=== PATIENT | male | born 2000 | race Caucasian/White ===

== ENCOUNTER 2021-06-23 12:26 | Inpatient (IN) | payer OTHER, SELFPAY ==
[2021-06-23] VITALS (8 sets, daily range): BP systolic 114–152; BP diastolic 72–98; PULSE 62–83; RESP 14–20; TEMP 36.4–37.2; O2SAT 95–97; BMI 46.3
--- NOTE | 2021-06-23 13:22 | ED.C_ITS ---
HPI - Psych General: Chief Complaint: Psychiatric Symptoms Stated Complaint: PANIC ATTACK , SI Time Seen by Provider: 06/23/21 12:32 History of Present Illness: HPI Narrative: 21-year-old female presents via EMS. Evidently he was at work and had a relationship issues develop with his girlfriend/fianc?. He states she blocked him on Facebook and he was not able to call her because he did not have any minutes on his phone. 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 He was able to flag someone down and convince him to give him a ride to his girlfriend's house. From there he gets a little bit foggy on the details. He states he blacked out but evidently was quite active and that the police were called and the door had been broken down. He states he was told he broke the door down but he does not particularly remember it. He states he does remember the police asking if he had any weapons or was going to harm himself he states he had considered killing himself using a knife he had in his pocket. However he states he voluntarily gave up the knife to the police and never actually did anything to try to harm himself. At this time he states he has no intent to kill himself or harm anyone else he is extremely worried about making contact with his girlfriend/fianc? to try to straighten out this event and what ever had precipitated. complaint: suicidal ideation and feels depressed Onset (ago): hour(s) Duration: constant History of same: Yes Relieving factors: none Exacerbating factors: none Associated psychiatric symptoms: depression and suicidal ideation Associated symptoms: Reports depression and suicidal ideation; Deny auditory hallucinations, visual hallucinations, delusions, homicidal ideation or racing thoughts Treatments prior to arrival: none If self harm: admits thoughts of self harm and has plan Review of Systems Const: Denies: fever(s), chills, body aches, change in appetite, fatigue or malaise ENMT: Denies: throat pain, ear or mastoid pain, nasal discharge or nasal congestion Card: Denies: chest pain, edema, dyspnea on exertion or orthopnea Resp: Denies: dyspnea, productive cough or non-productive cough GI: Denies: abdominal pain, nausea, vomiting, hematemesis, coffee ground emesis, diarrhea, constipation, bloating, hematochezia or melena : Denies: flank pain, dysuria, urinary frequency or urinary urgency Skin/Breast: Denies: rash or pruritus Psych: Reports: depression and suicidal ideation; Denies: visual hallucinations, auditory hallucinations or homicidal ideation Physical Exam Const: COMMON NORMALS: no acute distress GENERAL APPEARANCE: cooperative and comfortable ORIENTATION/CONSCIOUSNESS: Yes awake, Yes oriented to person, Yes oriented to place and Yes oriented to time HENMT: COMMON NORMALS: normocephalic, atraumatic and hearing grossly normal bilaterally HEAD & SCALP: normocephalic and atraumatic Neck/C-Spine: COMMON NORMALS: no JVD Resp: COMMON NORMALS: normal respiratory effort, No retractions, No use of accessory muscles and clear to auscultation bilaterally AUSCULTATION: clear to auscultation bilaterally Cardio: COMMON NORMALS: no JVD, regular rate, regular rhythm and No murmurs present (Cardio) RATE: regular rate RHYTHM: regular rhythm GI: COMMON NORMALS: Soft to palpation and No hepatosplenomegaly present AUSCULTATION: Yes normoactive bowel sounds PALPATION: Yes Soft to palpation, No Tenderness to palpation present (GI), No Guarding due to palpation present (GI) and Yes No hepatosplenomegaly present Extremity: COMMON NORMALS: normal to inspection, capillary refill normal, no clubbing, cyanosis or edema, no calf tenderness and no pedal edema Neuro: SENSORIUM/ORIENTATION: Yes oriented to person, Yes oriented to place and Yes oriented to time Psych: THOUGHT CONTENT: No delusions Skin: COMMON NORMALS: no rashes or lesions noted GENERAL SKIN EXAM: no rashes or lesions noted Course Vital Signs: Vital signs: Vital Signs Temperature 98.2 F 06/24/21 05:46 Pulse Rate 56 L 06/24/21 05:46 Respiratory Rate 17 06/24/21 05:46 Blood Pressure 124/71 06/24/21 05:46 Pulse Oximetry 97 06/24/21 05:46 MDM - Psych MDM Narrative: Medical decision making narrative: Discussed with Dr. Sun. Both agree given his lack of impulse control demonstrated in this event and the suicidal expression that he did make it one-point you should be admitted. 96- hour hold work has been completed and orders are written. Lab Data: Labs: Lab Results 06/23/21 13:28 Sodium 138 mmol/L mmol/L (136-145) Potassium 4.5 mmol/L mmol/L (3.5-5.1) Chloride 102 mmol/L mmol/L (98-107) Carbon Dioxide 24 mmol/L mmol/L (22-29) Anion Gap 16.5 (5-19) BUN 8 mg/dL mg/dL (6-20) Creatinine 0.8 mg/dL mg/dL (0.7-1.2) GFR Calculation 123.2 mL/min mL/m in (90-130) Glucose 100 mg/dL mg/dL (65-115) Calculated Osmolal ity 284 mOsm/kg L mOs m/kg (285-295) Calcium 9.9 mg/dL mg/dL (8.5-10.5) Total Bilirubin 0.2 mg/dL mg/dL (0.15-1.2) AST 21 U/L U/L (0-40) ALT 16 U/L U/L (0-41) Alkaline Phosphata se 102 IU/L IU/L (40-130) Total Protein 6.9 g/dL g/dL (6.6-8.7) Albumin 4.5 g/dL g/dL (3.5-5.2) Globulin 2.4 g/dL g/dL (1.3-4.6) Salicylates < 0.3 mg/dL L mg/ dL (3-10) Acetaminophen < 5.0 ug/mL L ug/ mL (10-30) Discharge Plan Discharge Patient Disposition: Admitted As Inpatient Admit Provider: Edvin Sun Clinical Impression: Suicidal ideation Condition: Stable Coding Level of Care Code ED Candy Cutter Machine for Cristobal Fwd Exam Comprehensive
--- NOTE | 2021-06-23 13:23 | ECG_ITS ---
[facility] Test Date: 2021-06-23 Pat Name: Adarsh Wynn Department: Room: Gender: Male Associate Consulting Engineer: : 2000 Requested By: Mohinder Alexandre Order Number: [id number] Reading MD: COBY CASTILLO Measurements Intervals [place] Rate: 58 P: 17 NV: 149 QRS: 22 QRSD: 96 T: -5 QT: 395 QTc: 389 Interpretive Statements SINUS BRADYCARDIA WITH MARKED SINUS ARRHYTHMIA MODERATE T-WAVE ABNORMALITY, CONSIDER ANTEROLATERAL ISCHEMIA [-0.1+ mV T-WAVE IN V3-V6] No previous ECG available for comparison Electronically Signed On 06-23-2021 21:54:54 CDT by COBY CASTILLO [id number]
[2021-06-23 14:05] LABS: Alanine Aminotransferase 16 U/L (0-41); Albumin Level 4.5 g/dL (3.5-5.2); Alkaline Phosphatase 102 IU/L (40-130); Anion Gap 16.5 (5-19); Aspartate Amino Transferase 21 U/L (0-40); Blood Urea Nitrogen 8 mg/dL (6-20); Calcium 9.9 mg/dL (8.5-10.5); Carbon Dioxide 24 mmol/L (22-29); Chloride 102 mmol/L (98-107); Globulin 2.4 g/dL (1.3-4.6); Glomerular Filtration Rate 123.2 mL/min (90-130); Glucose 100 mg/dL (65-115); Osmolality Calculated 284 mOsm/kg (285-295); Potassium 4.5 mmol/L (3.5-5.1); Sodium 138 mmol/L (136-145); Total Bilirubin 0.2 mg/dL (0.15-1.2); Total Protein 6.9 g/dL (6.6-8.7)
[2021-06-23 14:10] LABS: Acetaminophen < 5.0 ug/mL (10-30); Salicylate < 0.3 mg/dL (3-10)
--- NOTE | 2021-06-23 15:39 | PC.PHAR ---
pt states his girlfriend xavier has his medication bottles-called xavier [phone] she verified pts medications-pt states he was taking trazodone 50mg hs prn pt states [place]c [place] p[place] girlfriend states the pts family/friend gave the pt the trazodone-pt states he is out of his albuterol inhaler pt states he has been using his flovent inhaler and using 15-20 puffs a day-notes are made in the pharmacy comments-pt states he has allergies but is unsure what they are states to call his mother [phone] danita pt states he thought he was allergic to pencillins mother states he is not allergic to penicillins
[2021-06-23 15:56] LABS: Basophils # 0.1 10^3/uL (0.0-0.1); Basophils % 0.7 %; Hematocrit 43.9 % (42.0-52.0); Hemoglobin 13.9 g/dL (11.7-16.6); Mean Corpuscular HGB Conc 31.7 g/dL (30.0-36.0); Mean Corpuscular Hemoglobin 27.7 pg (28.0-34.0); Mean Corpuscular Volume 87.6 fl (80-94); Mean Platelet Volume 9.7 fL (7.4-10.4); Monocytes # 0.8 10^3/uL (0.2-0.9); Monocytes % 6.6 %; Neutrophils # 10.15 10^3/uL (1.8-8.0); Neutrophils % 84.3 %; Nucleated Red Blood Cells % 0 %; Platelet Count 419 10^3/cmm (130-400); Red Blood Count 5.01 10^6/uL (4.1-5.3); Red Cell Distribution Width 14.3 % (12.1-15.1)
--- NOTE | 2021-06-23 16:12 | PC.NURSE ---
Sitter at bedside
--- NOTE | 2021-06-23 17:42 | PC.NURSE ---
CONTACTED [facility] IN [facility], [place] [phone] TO CLARIFY HOME MEDICATIONS
[2021-06-23] MEDS: nicotine 2 mg Gum BUCCAL ×2 (18:16→20:40)
[2021-06-23] MEDS: trazodone 50 mg Tablet PO (20:40)
[2021-06-23] MEDS: hyDROXYzine 25 mg Capsule 50 MG PO (20:40)
[2021-06-23] MEDS: pantoprazole DR 40 mg Tablet PO (21:30)
--- NOTE | 2021-06-24 04:35 | PC.NURSE ---
Patient calm and cooperative at start of shift. Interactive with others. Did complain of mild anxiety. Took PRN Vistaril and Nicotine gum to good effect. Took PRN Trazodone for sleep that was also effective. Has had no further complaints voiced. Patient moved to room 124 during night for admission of new patient. Patient cooperative with this and was able to return to resting with eyes closed in new bed.
[2021-06-24 05:46] VITALS: BP 124/71; PULSE 56; RESP 17; TEMP 36.8; O2SAT 97
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
[2021-06-24] MEDS: montelukast sodium 10 mg Tablet PO (08:50)
[2021-06-24] MEDS: cetirizine 10 mg Tablet PO (08:50)
[2021-06-24] MEDS: nicotine 2 mg Gum BUCCAL ×4 (09:34→20:30)
[2021-06-24] MEDS: albuterol 8 gm MDI 1 PUFF INHALATION ×2 (09:52→19:44)
[2021-06-24 09:55] VITALS: PULSE 56; RESP 18; O2SAT 97
--- NOTE | 2021-06-24 11:27 | NPU.GN ---
[facility] Group Topic:Mental Health Crossword Puzzle/ Psych Education General Mood of Group: Adarsh did not attend group this morning he was sleeping.
[2021-06-24 14:00] VITALS: BP 166/92; PULSE 73; RESP 16; TEMP 37; O2SAT 97
[2021-06-24 19:46] VITALS: PULSE 72; RESP 18; O2SAT 96
[2021-06-24 20:09] VITALS: BP 150/69; PULSE 68; RESP 17; O2SAT 97
[2021-06-24] MEDS: acetaminophen 325 mg Tablet 650 MG PO (20:28)
[2021-06-24] MEDS: BuSPIRONE 10 mg Tablet 15 MG PO (20:29)
[2021-06-24] MEDS: trazodone 50 mg Tablet PO (20:30)
[2021-06-24] MEDS: pantoprazole DR 40 mg Tablet PO (20:30)
[2021-06-24] MEDS: hyDROXYzine 25 mg Capsule 50 MG PO (20:34)
--- NOTE | 2021-06-25 03:55 | PC.NURSE ---
Patient reported leg pain. Took PRN Tylenol at 2029 that was effective. Received Nicotine gum at 2029. Endorsed mild anxiety at 2033 and took PRN Vistaril to good effect. Patient watched baseball game in dayroom before going to bed. Has been in bed resting with eyes closed throughout night. \No further complaints.
[2021-06-25 06:00] VITALS: BP 131/74; PULSE 81; RESP 17; O2SAT 96
[2021-06-25] MEDS: montelukast sodium 10 mg Tablet PO (08:13)
[2021-06-25] MEDS: cetirizine 10 mg Tablet PO (08:13)
[2021-06-25] MEDS: BuSPIRONE 10 mg Tablet 15 MG PO (08:13)
[2021-06-25] MEDS: nicotine 2 mg Gum BUCCAL ×2 (08:58→12:11)
[2021-06-25] MEDS: albuterol 8 gm MDI 1 PUFF INHALATION (09:30)
[2021-06-25] MEDS: ondansetron 4 MG Tablet PO (09:50)
--- NOTE | 2021-06-25 10:02 | PC.NURSE ---
PATIENT REPORTS HAS BEEN NAUSEATED ALL DAY, MEDICATED PER PRN ORDERS, ZOFRAN 4MG.
[2021-06-25 10:30] VITALS: PULSE 73; RESP 18; O2SAT 96
--- NOTE | 2021-06-25 10:58 | NPU.GN ---
[facility] Group Topic: Meditation Psych Education General Mood of Group: Omkar did attend group and did well in group and meditation. Omkar started to complete the intake packet for [facility], but then suddenly felt ill and went to his room to lay down after group. When this writer technical publications was aiding patient in filling out the intake paperwork.
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
[2021-06-25 12:06] VITALS: PULSE 73; RESP 18; O2SAT 96
--- NOTE | 2021-06-25 12:28 | DCPLANNER ---
IMM completed 06/24/21 @ 2385. Pt given a copy of rights.
== END 2021-06-25 13:33 | disposition home or self-care (01) | DRG 880 ==
LOC: ER 14:22 → NP 16:20
PROVIDERS: Admitting Provider Psychiatry & Neurology Psychiatry; Emergency Provider Family Medicine; Visit Provider Psychiatry & Neurology Psychiatry
DX: F41.0 Panic disorder [episodic paroxysmal anxiety] (principal); R45.851 Suicidal ideations; Z63.0 Problems in relationship with spouse or partner; J45.909 Unspecified asthma, uncomplicated; E66.01 Morbid (severe) obesity due to excess calories; T78.40XA Allergy, unspecified, initial encounter; F12.980 Cannabis use, unspecified with anxiety disorder
CPT/HCPCS: 80053; 80307; 85025; 93005; 94640; 97150; 97165; 99285; J3535; Q0162

== ENCOUNTER 2021-07-10 14:22 | Outpatient (CLI) | payer OTHER, SELFPAY ==
--- NOTE | 2021-07-10 14:29 | XR_ITS ---
WS: [id number] LEFT ANKLE: 2 VIEW(S) TECHNIQUE: AP and lateral. HISTORY: ankle pain COMPARISON: None available. Normal anatomic alignment with no fracture or dislocation. Healing fracture involving the distal third of the fibula. There is mild spurring along the anterior tibial plafond. No joint effusion. No significant degenerative changes at the joint spaces. No soft tissue abnormality. XR/XR ankle LT 2V [id number] IMPRESSION: 1. Healing fracture distal third of the fibula. 2. No acute fracture. 3. Mild anterior tibial plafond spurring.
== END 2021-07-10 14:23 | disposition home or self-care (01) ==
PROVIDERS: PCP Family Medicine Adult Medicine; Visit Provider Family Medicine Adult Medicine
DX: S82.832A Other fracture of upper and lower end of left fibula, initial encounter for closed fracture; X58.XXXA Exposure to other specified factors, initial encounter
CPT/HCPCS: 73600

== ENCOUNTER 2025-07-31 21:46 | Emergency (ER) | payer OTHER, SELFPAY ==
[2025-07-31 21:57] VITALS: BP 131/87; PULSE 67; RESP 18; TEMP 36.8; O2SAT 96; BMI 45.1
[2025-07-31 22:39] VITALS: BP 125/75; O2SAT 97
--- NOTE | 2025-07-31 22:43 | ED_ITS ---
HPI - Dental/Oral 2 General: Chief complaint: Dental/Oral Stated complaint: Tooth infection Time Seen by Provider: 07/31/25 22:15 Source: patient Mode of arrival: ambulatory Limitations: no limitations History of Present Illness: Patient is a 25-year-old male presents emergency department complaining of left upper dental pain for a month. States he just moved here, does not have insurance or dentist that he sees. Pain has been waking him up from sleep. Notes mild facial swelling, and pain when he eats. States his mom had a history of gum disease he wanted evaluated for this. No fevers or trouble breathing. Has been alternating Motrin and Tylenol. No personal history of dental abscess. MD Complaint: tooth pain Teeth map: 1. Cracked, edematous tooth Onset (ago): month(s) Duration: constant Severity: severe Associated symptoms: Denies ear or mastoid pain or fever(s) Related Data Previous Rx's ?Medication ?Instructions ?Recorded albuterol sulfate 90 mcg/actuation 2 puff inhalation Q 6H PRN 07/10/21 aerosol inhaler shortness of breath or wheez ing #8.5 grams cetirizine 10 mg tablet (Zyrtec) 10 mg PO DAILY allerg ies #30 tabs 07/10/21 fluticasone propionate 110 2 puff inhalation BID asthm a #12 07/10/21 mcg/actuation HFA aerosol inhaler grams montelukast 10 mg tablet 10 mg PO DAILY asthma #30 ta bs 07/10/21 (Singulair) omeprazole 20 mg capsule,delayed 20 mg PO 0700 acid re flux #30 caps 07/10/21 release paroxetine HCl 30 mg tablet (Paxil) 30 mg PO DAILY [facility] #30 07/10/21 tabs amoxicillin 875 mg-potassium 1 tab PO BID 7 days #14 t abs 07/31/25 clavulanate 125 mg tablet prednisone 10 mg tablets in a dose 10 mg PO DIRECTE D #21 ea 07/31/25 pack Allergies Allergy/AdvReac Type Severity Reaction Status Date / Time amphetamine (From Adderall) Allergy Unknown Verified 07/10/21 13:24 dextroamphetamine (From Allergy Unknown Verified 07/10/21 13:24 Adderall) lisdexamfetamine (From Allergy ADR-Swelling Verified 07/10/21 13:24 Vyvanse) of the Eye metoclopramide (From Reglan) Allergy Unknown Verified 07/10/21 13:24 oak Allergy Unknown Verified 07/10/21 13:24 Review of Systems 2 General: Reports: 10 or more systems reviewed and unremarkable except in HPI and below Const: Denies: fever(s), chills or fatigue Eyes: Denies: change in vision ENMT: Reports: dental pain and sinus pain; Denies: throat pain, ear or mastoid pain or nasal discharge Card: Denies: chest pain, palpitations, swelling of feet/ankles or lightheadedness Resp: Denies: dyspnea, productive cough or wheezing GI: Denies: abdominal pain, nausea, vomiting, diarrhea or constipation : Denies: flank pain, difficulty urinating, dysuria or urinary frequency Musc: Denies: neck pain, back pain or joint pain Skin/Breast: Denies: rash Neuro: Denies: headache(s), numbness in extremities or weakness in extremities PFSH ED 2 PFSH: Medical History Lower extremity pain, left GERD (gastroesophageal reflux disease) Asthma 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 Family History Other Cancer Social History Smoking and tobacco/nicotine status: current every day tobacco/nicotine user (marijuana) Alcohol intake: current Alcohol intake frequency: holidays/special occasions only Substance/Drug Use: current Substance/Drug use frequency: few times a month Lives independently: Yes Household members: significant other Marital status: Life Partner Number of children: 0 Current occupational status: employed Physical Exam 2 Const: COMMON NORMALS: no acute distress and no limitations GENERAL APPEARANCE: cooperative, comfortable and well developed O RIENTATION/CONSCIOUSNESS: Yes awake HENMT: COMMON NORMALS: normocephalic, atraumatic and hearing grossly normal bilaterally HEAD & SCALP: normocephalic and atraumatic OTHER: Overall poor dentition. To left upper molars there is edema and tenderness, and cracking of the teeth. Gingival tenderness to palpation and edema, no drainable abscess appearing at this time. Mild facial tenderness and swelling to the left maxillary region. No posterior oropharyngeal swelling, no tongue or lip swelling. Neck/C-Spine: COMMON NORMALS: full ROM and supple Resp: COMMON NORMALS: normal respiratory effort, No retractions and No use of accessory muscles Extremity: COMMON NORMALS: normal to inspection, full ROM and capillary refill normal Skin: COMMON NORMALS: no rashes or lesions noted GENERAL SKIN EXAM: no rashes or lesions noted Course 2 Vital Signs: Vital signs: Vital Signs Temperature 98.2 F 07/31/25 21:57 Pulse Rate 67 07/31/25 21:57 Respiratory Rate 18 07/31/25 21:57 Blood Pressure 125/75 07/31/25 22:39 Pulse Oximetry 97 07/31/25 22:39 Oxygen Delivery Me thod Room Air 07/31/25 22:39 MDM - Dental/Oral Medical Decision Making Patient presenting with left upper dental pain for a month, has not seen a dentist states he just moved here does not have insurance. On exam there is cracking of the teeth with associated edema and tenderness, likely representing chronic dental issues but we will go ahead and treat empirically for dental abscess and he is given instructions on dental follow-ups, regardless of insurance status. Respiratory status is stable, no further workup in the ED necessary he is given pain meds and a steroid shot for the facial swelling. No radiology studies performed this visit Discharge Plan Discharge Patient Disposition: Home Clinical Impression: Dental abscess Condition: Stable Prescriptions: New prednisone 10 mg tablets,dose pack 10 mg PO DIRECTED Qty: 21 0RF Rx Instructions: see taper instructions 6 tablets on day 1, 5 tablets on day 2, 4 tablets on day 3, 3 tablets on day 4, 2 tablets on day 5, and 1 tablet a day 6. P.o. amoxicillin-pot clavulanate 875-125 mg tablet 1 tab PO BID 7 Days Qty: 14 0RF No Action omeprazole 20 mg capsule,delayed release(DR/EC) 20 mg PO 0700 Qty: 30 5RF Singulair 10 mg tablet 10 mg PO DAILY Qty: 30 5RF fluticasone propionate 110 mcg/actuation HFA aerosol inhaler 2 puff INHALATION BID Qty: 12 5RF Zyrtec 10 mg tablet 10 mg PO DAILY Qty: 30 5RF albuterol sulfate 90 mcg/actuation HFA aerosol inhaler 2 puff inhalation Q6H PRN (Reason: shortness of breath or wheezing) Qty: 8.5 5RF paroxetine HCl [Paxil] 30 mg tablet 30 mg PO DAILY Qty: 30 5RF Discharge Orders: Discharge ED (Routine); Ordered 07/31/25 Ordered By: Alessio Fitzgerald Patient Instructions: Dental Abscess (ED), Patient Portal & Abril Instructions Activity Restrictions/Additional Instructions: Take antibiotics as prescribed. Prednisone taper as prescribed. Follow-up with dentist, handout provided. Work note also provided. Motrin and Tylenol for pain. Return with any new or worsening. Stand Alone Forms: Work/School Release Print Language: Ukrainian Coding Level of Care Code ED Medical Research Assistant for Cristobal Snider
[2025-07-31] MEDS: HYDROcodone-acetaminophen 7.5-325 mg Tablet 1 TAB PO (22:53)
[2025-07-31 22:54] VITALS: BP 125/75; PULSE 63; RESP 17; O2SAT 96
== END 2025-07-31 22:56 | disposition home or self-care (01) ==
PROVIDERS: Emergency Provider Physician Assistant
DX: K04.7 Periapical abscess without sinus (principal)
CPT/HCPCS: 96372; 99284; J1100; J9999

== ENCOUNTER 2025-08-18 16:22 | Emergency (ER) | payer OTHER, SELFPAY ==
[2025-08-18 16:15] VITALS: BP 155/79; PULSE 78; RESP 14; TEMP 37.5; O2SAT 98
--- NOTE | 2025-08-18 18:18 | ED_ITS ---
Documented by User: NORIS Walton 08/18/25 19:03 HPI - Wound/Laceration General: Chief Complaint: Wound/Laceration Stated Complaint: hand lac Time Seen by Provider: 08/18/25 18:01 Source: patient Mode of arrival: EMS Limitations: no limitations History of Present Illness: Patient is a 25-year-old male who presents emergency department after cutting his left hand while at work. States he was trying to cut something with a butter knife, it slipped and caused the laceration to the palm. He was at work when this happened. He tells me he was attempting to cut a zip tie. Bleeding controlled on arrival. No distal neurovascular symptoms. States tetanus is not up-to-date. Extremity Location: Left: hand Place: work Patient tetanus UTD: No Context: accidental Associated symptoms: Denies chills, fever(s), nausea or vomiting Related Data Previous Rx's ?Medication ?Instructions ?Recorded albuterol sulfate 90 mcg/actuation 2 puff inhalation Q 6H PRN 07/10/21 aerosol inhaler shortness of breath or wheez ing #8.5 grams cetirizine 10 mg tablet (Zyrtec) 10 mg PO DAILY allerg ies #30 tabs 07/10/21 fluticasone propionate 110 2 puff inhalation BID asthm a #12 07/10/21 mcg/actuation HFA aerosol inhaler grams montelukast 10 mg tablet 10 mg PO DAILY asthma #30 ta bs 07/10/21 (Singulair) omeprazole 20 mg capsule,delayed 20 mg PO 0700 acid re flux #30 caps 07/10/21 release paroxetine HCl 30 mg tablet (Paxil) 30 mg PO DAILY [facility] #30 07/10/21 tabs prednisone 10 mg tablets in a dose 10 mg PO DIRECTE D #21 ea 07/31/25 pack cephalexin 500 mg capsule 500 mg PO Q6H 5 days #20 cap s 08/18/25 Allergies Allergy/AdvReac Type Severity Reaction Status Date / Time amphetamine (From Adderall) Allergy Unknown Verified 08/18/25 16:21 dextroamphetamine (From Allergy Unknown Verified 08/18/25 16:21 Adderall) lisdexamfetamine (From Allergy ADR-Swelling Verified 08/18/25 16:21 Vyvanse) of the Eye metoclopramide (From Reglan) Allergy Unknown Verified 08/18/25 16:21 oak Allergy Unknown Verified 08/18/25 16:21 Review of Systems General: Reports: 10 or more systems reviewed and unremarkable except in HPI and below Const: Denies: fever(s) or chills Card: Denies: chest pain Resp: Denies: dyspnea GI: Denies: abdominal pain, nausea, vomiting or diarrhea Musc: Denies: extremity pain or joint pain Skin/Breast: Reports: skin pain, skin tenderness and new lesions (Laceration left palm); Denies: rash Neuro: Denies: headache(s) PFSH ED PFSH: Medical History Lower extremity pain, left GERD (gastroesophageal reflux disease) Asthma 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 Family History Other Cancer Social History Smoking and tobacco/nicotine status: current every day tobacco/nicotine user (marijuana) Alcohol intake: current Alcohol intake frequency: holidays/special occasions only Substance/Drug Use: current Substance/Drug use frequency: few times a month Lives independently: Yes Household members: significant other Marital status: Life Partner Number of children: 0 Current occupational status: employed Physical Exam Const: COMMON NORMALS: no acute distress, average body habitus, patient oriented x3, no limitations, healthy appearing, alert and well nourished HENMT: COMMON NORMALS: normocephalic and atraumatic HEAD & SCALP: normocephalic and atraumatic Neck/C-Spine: COMMON NORMALS: full ROM, no lymphadenopathy, supple and no meningeal signs Extremity: COMMON NORMALS: full ROM and capillary refill normal NARRATIVE EXTREMITY EXAM: Distal sensations are intact to left hand. Full range of motion of the left hand and fingers. Neuro: COMMON NORMALS: patient oriented x3, moves all extremities, no focal motor deficits and no sensory deficits noted SENSORIUM/ORIENTATION: Yes alert MENINGEAL SIGNS: Yes no meningeal signs Skin: COMMON NORMALS: turgor normal NARRATIVE SKIN EXAM: 3 cm laceration to left palm, no active bleeding. Underlying adipose tissue present but no deep structures appear to be involved. GENERAL SKIN EXAM: turgor normal Procedures Laceration Laceration 1: Site: hand Side (If applicable): left Size (cm): 3 Description: linear Depth: simple, single layer Local Anesthetic: lidocaine 2% and with epi Amount of anesthesia used (mL): 6 Pre-repair: wound explored, irrigated extensively and deep structures intact Skin layer closed with: nylon Size (cm): 4-0 Number of sutures: 11 Technique: simple, interrupted Course Vital Signs: Vital signs: Vital Signs Temperature 99.5 F 08/18/25 16:15 Pulse Rate 65 08/18/25 19:11 Respiratory Rate 16 08/18/25 19:11 Blood Pressure 120/62 08/18/25 19:11 Pulse Oximetry 93 08/18/25 19:11 Oxygen Delivery Me thod Room Air 08/18/25 16:15 MDM - Wound/Laceration Medical Decision Making Patient presented after lacerating his left palm on accident with a butter knife at work. Not a Worker's Compensation issue. Laceration repaired, see the procedure note. His tetanus is also updated today. The neurovascular exam is intact. Will be started on prophylactic antibiotics due to the characteristics of the injury, post procedure neurovascular status is intact. No radiology studies performed this visit Discharge Plan Discharge Patient Disposition: Home Clinical Impression: Laceration of left palm Qualifiers: Encounter type: initial encounter Qualified Code(s): S61.412A - Laceration without foreign body of left hand, initial encounter Condition: Stable Prescriptions: New cephalexin 500 mg capsule 500 mg PO Q6H 5 Days Qty: 20 0RF No Action omeprazole 20 mg capsule,delayed release(DR/EC) 20 mg PO 0700 Qty: 30 5RF Singulair 10 mg tablet 10 mg PO DAILY Qty: 30 5RF fluticasone propionate 110 mcg/actuation HFA aerosol inhaler 2 puff INHALATION BID Qty: 12 5RF Zyrtec 10 mg tablet 10 mg PO DAILY Qty: 30 5RF albuterol sulfate 90 mcg/actuation HFA aerosol inhaler 2 puff inhalation Q6H PRN (Reason: shortness of breath or wheezing) Qty: 8.5 5RF paroxetine HCl [Paxil] 30 mg tablet 30 mg PO DAILY Qty: 30 5RF prednisone 10 mg tablets,dose pack 10 mg PO DIRECTED Qty: 21 0RF Rx Instructions: see taper instructions 6 tablets on day 1, 5 tablets on day 2, 4 tablets on day 3, 3 tablets on day 4, 2 tablets on day 5, and 1 tablet a day 6. P.o. Discharge Orders: Discharge ED (Routine); Ordered 08/18/25 Ordered By: Alessio Fitzgerald Patient Instructions: Patient Portal & Abril Instructions Activity Restrictions/Additional Instructions: Discharge Instructions: Left Palm Laceration Your Diagnosis You were treated today for a laceration (cut) to your left palm. The wound was closed with 11 sutures. You also received a tetanus vaccination to ensure you are protected against tetanus infection. Wound Care Instructions Keep your wound clean and dry for the first 24-48 hours. After this time, you may gently wash the wound with soap and water, but do not scrub or soak it. Pat the area dry gently with a clean towel. Keep the wound covered with a clean, dry bandage for at least the first 48 hours. Change the bandage daily or if it becomes wet or dirty. Keep your left hand elevated above the level of your heart as much as possible, especially for the first 2-3 days. This helps reduce swelling and pain. Avoid getting the wound excessively wet. You may shower carefully, but avoid submerging your hand in water (no baths, swimming, or dishwashing) until the sutures are removed. Medications Take cephalexin 500 mg by mouth four times daily for 5 days. Take all doses as prescribed, even if the wound looks better. This antibiotic helps prevent infection. You may take [id number] pain medication such as acetaminophen (Tylenol) or ibuprofen (Advil, Motrin) as needed for pain. Activity Restrictions Avoid heavy lifting, gripping, or strenuous activities with your left hand until the sutures are removed and your wound has healed. Do not pick at or scratch the wound or sutures. Follow-Up Care You must return to have your sutures removed in 10-14 days. Hand sutures need to stay in longer than sutures in other areas because of the tension on the wound. Please schedule this appointment within the next few days. Warning Signs - Seek Medical Attention If You Experience: - Increasing redness, warmth, or swelling around the wound - Red streaks extending from the wound - Pus or foul-smelling drainage from the wound - Fever of 100.4?F (38?C) or higher - Increasing pain that is not controlled with [id number] pain medication - Numbness or tingling in your fingers - Difficulty moving your fingers - Separation of the wound edges - Any other concerns about your wound If you experience any of these warning signs, contact your doctor immediately or return to the emergency department. Additional Information The appearance of your scar may continue to change and improve over the next year as the wound remodels and heals. Protect the healed wound from sun exposure for at least 6 months to reduce the risk of darkening or hyperpigmentation of the scar. Stand Alone Forms: Work/School Release Print Language: Peruvian Coding Level of Care Code ED Utilization Management Manager for [facility] Documented by User: Mohinder Newman DO 08/20/25 10:55 HPI - Wound/Laceration General: Chief Complaint: Wound/Laceration Stated Complaint: hand lac Time Seen by Provider: 08/18/25 18:01 Related Data Previous Rx's ?Medication ?Instructions ?Recorded albuterol sulfate 90 mcg/actuation 2 puff inhalation Q 6H PRN 07/10/21 aerosol inhaler shortness of breath or wheez ing #8.5 grams cetirizine 10 mg tablet (Zyrtec) 10 mg PO DAILY allerg ies #30 tabs 07/10/21 fluticasone propionate 110 2 puff inhalation BID asthm a #12 07/10/21 mcg/actuation HFA aerosol inhaler grams montelukast 10 mg tablet 10 mg PO DAILY asthma #30 ta bs 07/10/21 (Singulair) omeprazole 20 mg capsule,delayed 20 mg PO 0700 acid re flux #30 caps 07/10/21 release paroxetine HCl 30 mg tablet (Paxil) 30 mg PO DAILY [facility] #30 07/10/21 tabs prednisone 10 mg tablets in a dose 10 mg PO DIRECTE D #21 ea 07/31/25 pack cephalexin 500 mg capsule 500 mg PO Q6H 5 days #20 cap s 08/18/25 Allergies Allergy/AdvReac Type Severity Reaction Status Date / Time amphetamine (From Adderall) Allergy Unknown Verified 08/18/25 16:21 dextroamphetamine (From Allergy Unknown Verified 08/18/25 16:21 Adderall) lisdexamfetamine (From Allergy ADR-Swelling Verified 08/18/25 16:21 Vyvanse) of the Eye metoclopramide (From Reglan) Allergy Unknown Verified 08/18/25 16:21 oak Allergy Unknown Verified 08/18/25 16:21 PFSH ED PFSH: Medical History Lower extremity pain, left GERD (gastroesophageal reflux disease) Asthma 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 Family History Other Cancer Social History Smoking and tobacco/nicotine status: current every day tobacco/nicotine user (marijuana) Alcohol intake: current Alcohol intake frequency: holidays/special occasions only Substance/Drug Use: current Substance/Drug use frequency: few times a month Lives independently: Yes Household members: significant other Marital status: Life Partner Number of children: 0 Current occupational status: employed Course Vital Signs: Vital signs: Vital Signs Temperature 99.5 F 08/18/25 16:15 Pulse Rate 65 08/18/25 19:11 Respiratory Rate 16 08/18/25 19:11 Blood Pressure 120/62 08/18/25 19:11 Pulse Oximetry 93 08/18/25 19:11 Oxygen Delivery Me thod Room Air 08/18/25 16:15 MDM - Wound/Laceration Medical Decision Making Patient presented after lacerating his left palm on accident with a butter knife at work. Not a Worker's Compensation issue. Laceration repaired, see the procedure note. His tetanus is also updated today. The neurovascular exam is intact. Will be started on prophylactic antibiotics due to the characteristics of the injury, post procedure neurovascular status is intact. Chart reviewed Discharge Plan Discharge Patient Disposition: Home Clinical Impression: Laceration of left palm Qualifiers: Encounter type: initial encounter Qualified Code(s): S61.412A - Laceration without foreign body of left hand, initial encounter Condition: Stable Prescriptions: New cephalexin 500 mg capsule 500 mg PO Q6H 5 Days Qty: 20 0RF No Action omeprazole 20 mg capsule,delayed release(DR/EC) 20 mg PO 0700 Qty: 30 5RF Singulair 10 mg tablet 10 mg PO DAILY Qty: 30 5RF fluticasone propionate 110 mcg/actuation HFA aerosol inhaler 2 puff INHALATION BID Qty: 12 5RF Zyrtec 10 mg tablet 10 mg PO DAILY Qty: 30 5RF albuterol sulfate 90 mcg/actuation HFA aerosol inhaler 2 puff inhalation Q6H PRN (Reason: shortness of breath or wheezing) Qty: 8.5 5RF paroxetine HCl [Paxil] 30 mg tablet 30 mg PO DAILY Qty: 30 5RF prednisone 10 mg tablets,dose pack 10 mg PO DIRECTED Qty: 21 0RF Rx Instructions: see taper instructions 6 tablets on day 1, 5 tablets on day 2, 4 tablets on day 3, 3 tablets on day 4, 2 tablets on day 5, and 1 tablet a day 6. P.o. Discharge Orders: Discharge ED (Routine); Ordered 08/18/25 Ordered By: Alessio Fitzgerald Patient Instructions: Patient Portal & [facility] Instructions Activity Restrictions/Additional Instructions: Discharge Instructions: Left Palm Laceration Your Diagnosis You were treated today for a laceration (cut) to your left palm. The wound was closed with 11 sutures. You also received a tetanus vaccination to ensure you ar e protected against tetanus infection. Wound Care Instructions Keep your wound clean and dry for the first 24-48 hours. After this time, you may gently wash the wound with soap and water, but do not scrub or soak it. Pat the area dry gently with a clean towel. Keep the wound covered with a clean, dry bandage for at least the first 48 hours. Change the bandage daily or if it becomes wet or dirty. Keep your left hand elevated above the level of your heart as much as possible, especially for the first 2-3 days. This helps reduce swelling and pain. Avoid getting the wound excessively wet. You may shower carefully, but avoid submerging your hand in water (no baths, swimming, or dishwashing) until the sutures are removed. Medications Take cephalexin 500 mg by mouth four times daily for 5 days. Take all doses as prescribed, even if the wound looks better. This antibiotic helps prevent infection. You may take [id number]-[id number] pain medication such as acetaminophen (Tylenol) or ibuprofen (Advil, Motrin) as needed for pain. Activity Restrictions Avoid heavy lifting, gripping, or strenuous activities with your left hand until the sutures are removed and your wound has healed. Do not pick at or scratch the wound or sutures. Follow-Up Care You must return to have your sutures removed in 10-14 days. Hand sutures need to stay in longer than sutures in other areas because of the tension on the wound. Please schedule this appointment within the next few days. Warning Signs - Seek Medical Attention If You Experience: - Increasing redness, warmth, or swelling around the wound - Red streaks extending from the wound - Pus or foul-smelling drainage from the wound - Fever of 100.4?F (38?C) or higher - Increasing pain that is not controlled with qsuc-ceg-jnobqea pain medication - Numbness or tingling in your fingers - Difficulty moving your fingers - Separation of the wound edges - Any other concerns about your wound If you experience any of these warning signs, contact your doctor immediately or return to the emergency department. Additional Information The appearance of your scar may continue to change and improve over the next year as the wound remodels and heals. Protect the healed wound from sun exposure for at least 6 months to reduce the risk of darkening or hyperpigmentation of the scar. Stand Alone Forms: Work/School Release Print Language: Peruvian Coding Level of Care Code ED Utilization Management Manager for Cristobal Snider
[2025-08-18] MEDS: tetanus-dipt-pertussis 0.5 mL SDV IM (18:33)
[2025-08-18] MEDS: HYDROcodone-acetaminophen 7.5-325 mg Tablet 1 TAB PO (18:33)
[2025-08-18] MEDS: lidocaine-epi 2% 20 mL INJ INJECTION (18:33)
[2025-08-18 19:11] VITALS: BP 120/62; PULSE 65; RESP 16; O2SAT 93
== END 2025-08-18 19:09 | disposition home or self-care (01) ==
PROVIDERS: Emergency Provider Physician Assistant
DX: S61.412A Laceration without foreign body of left hand, initial encounter (principal); F12.90 Cannabis use, unspecified, uncomplicated; W26.0XXA Contact with knife, initial encounter
CPT/HCPCS: 12002; 90715; 99283; 99291; J9999